=== PATIENT | female | born 1935 | race Two or more races ===

== ENCOUNTER → 2018-10-16 | Outpatient (CLI) | payer OTHER | END | disposition home or self-care (01) | LOC: NUCLEAR 10:45 | DX: M81.0 Age-related osteoporosis without current pathological fracture (principal) ==

== ENCOUNTER 2019-10-15 09:49 | Outpatient (CLI) | payer OTHER | END 2019-10-15 10:30 | disposition home or self-care (01) | LOC: NUCLEAR 09:49 | DX: I11.9 Hypertensive heart disease without heart failure (principal); I73.9 Peripheral vascular disease, unspecified; I87.2 Venous insufficiency (chronic) (peripheral) ==

== ENCOUNTER 2019-10-18 12:57 | Outpatient (CLI) | payer OTHER | END 2019-10-18 13:05 | disposition home or self-care (01) | LOC: NUCLEAR 12:57 | DX: I73.9 Peripheral vascular disease, unspecified (principal) ==

== ENCOUNTER 2020-07-02 09:17 | Outpatient (CLI) | payer OTHER | END 2020-07-02 09:19 | disposition home or self-care (01) | LOC: RAD 09:17 | PROVIDERS: ATTEND Internal Medicine Cardiovascular Disease | DX: R06.09 Other forms of dyspnea (principal) ==

== ENCOUNTER 2020-11-17 12:22 | Outpatient (CLI) | payer OTHER | END 2020-11-17 15:08 | disposition home or self-care (01) | LOC: LAB 12:22 | PROVIDERS: ATTEND Radiology Diagnostic Radiology | DX: N20.0 Calculus of kidney (principal) ==

== ENCOUNTER 2020-11-19 09:37 | Outpatient (CLI) | payer OTHER | END 2020-11-19 11:17 | disposition home or self-care (01) | LOC: TOM 09:37 | PROVIDERS: ATTEND Internal Medicine Gastroenterology | DX: K82.1 Hydrops of gallbladder (principal); Q00-Q99 Congenital malformations, deformations and chromosomal abnormalities; R10.31 Right lower quadrant pain; R10.32 Left lower quadrant pain; K57.90 Diverticulosis of intestine, part unspecified, without perforation or abscess without bleeding | CPT/HCPCS: 74177; Q9965 ==

== ENCOUNTER 2020-12-05 07:51 | Outpatient (CLI) | payer OTHER | END 2020-12-05 07:55 | disposition home or self-care (01) | LOC: SONOGRAMA 07:51 → MAMO-SONO 08:00 | PROVIDERS: ATTEND Internal Medicine Gastroenterology | DX: K80.80 Other cholelithiasis without obstruction (principal); R10.11 Right upper quadrant pain ==

== ENCOUNTER 2021-04-30 10:37 | Outpatient (CLI) | payer OTHER | END 2021-04-30 10:48 | disposition home or self-care (01) | LOC: RAD 10:37 | PROVIDERS: ATTEND Internal Medicine | DX: J01.90 Acute sinusitis, unspecified (principal); I87.2 Venous insufficiency (chronic) (peripheral); E03.9 Hypothyroidism, unspecified; M54.2 Cervicalgia; M89.9 Disorder of bone, unspecified; E55.9 Vitamin D deficiency, unspecified; E66.8 Other obesity; I49.9 Cardiac arrhythmia, unspecified ==

== ENCOUNTER 2024-12-24 11:27 | Inpatient (IN) | payer OTHER ==
[~2024-12-24] VITALS: Ht 152.4 cm; Wt 68.0 kg
[2024-12-24] MEDS ORDERED: DOCUSATE SODIU100 MG PO (11:51)
[2024-12-24] MEDS ORDERED: DONEPEZIL HCL5 MG PO (11:51)
[2024-12-24] MEDS ORDERED: BUSPIRONE HCL5 MG PO (11:51)
[2024-12-24] MEDS ORDERED: INDAPAMIDE1.25 MG PO (11:51)
[2024-12-24] MEDS ORDERED: PANTOPRAZOLE SO40 MG PO (11:52)
[2024-12-24] MEDS ORDERED: METFORMIN HCL500 M4 PO (11:52)
[2024-12-24] MEDS ORDERED: ST. JOSEPH ASPI81 M2 PO (11:52)
[2024-12-24] MEDS ORDERED: ROSUVASTATIN CAL5 MG PO (11:52)
[2024-12-24] MEDS ORDERED: SERTRALINE HCL25 MG PO (11:52)
[2024-12-24] MEDS ORDERED: 0.9 % SODIUM CHLORIDE 1,000 ML IV SCH (12:00)
[2024-12-24 12:40] LABS: HEMATOCRIT 27.1 % (36.0-45.00); MEAN CELL VOLUME 92.1 fL (80.00-100.00); MEAN CORPUSCULAR HGB CONC 34.2 g/dl (32.0-36.0); RED BLOOD COUNT 2.94 M/uL (4.00-6.00); RED CELL DISTRIBUTION WIDTH 14.3 % (11.5-14.5)
[2024-12-24 12:45] LABS: MEAN CORPUSCULAR HEMOGLOBIN 31.6 pg (27.00-32.0)
[2024-12-24 12:48] LABS: HEMOGLOBIN 9.3 g/dL (12.0-15.00); PLATELET COUNT 178 K/uL (150-450)
[2024-12-24 13:07] LABS: INR 1.05; PARTIAL THROMBOPLASTIN TIME 24.8 SECONDS (22.0-34.0); PROTHROMBIN TIME 11.4 SECONDS (9.0-11.5)
[2024-12-24 13:12] LABS: ALBUMIN 3.3 gm/dL (3.4-5.0); BILIRUBIN TOTAL 0.66 mg/dL (0.3-1.2); CALCIUM 9.2 mg/dL (8.5-10.1); CREATININE SERUM 0.99 mg/dL (0.55-1.02); GFR 53.06; GLOBULINA 3.9 G/DL (2.4-3.5); POTASSIUM 3.38 mEq/L (3.5-5.1); TOTAL PROTEIN 7.2 gm/dL (6.4-8.2)
[2024-12-24] MEDS ORDERED: DILTIAZEM HCL 25 MG/5 ML VIAL IV ONE ×2 (13:45→13:52)
[2024-12-24] MEDS ORDERED: DILTIAZEM HCL 125 MG in 0.9 % SODIUM CHLORIDE 125 ML IV SCH (14:15)
[2024-12-24] MEDS ORDERED: IPRATROPIUM BROMIDE 0.5 MG/2.5 ML AMPUL.NEB IH SCH (18:30)
[2024-12-24] MEDS ORDERED: ENOXAPARIN SODIUM 60 MG/0.6 ML SYRINGE SUBCUTANEO SCH (18:39)
[2024-12-24] MEDS ORDERED: DONEPEZIL HCL 5 MG TABLET PO SCH (18:41)
[2024-12-24] MEDS ORDERED: ACETAMINOPHEN 500 MG GEL..CAP PO PRN (18:45)
[2024-12-24] MEDS ORDERED: INSULIN LISPRO 1,000 UNIT/10 ML UNITS SUBCUTANEO PRN (18:45)
[2024-12-24] MEDS ORDERED: DEXTROSE 50 % IN WATER 0.5 G/ML DISP.SYRIN IV PRN (18:45)
[2024-12-24 19:37] LABS: INR 1.05; PROTHROMBIN TIME 11.4 SECONDS (9.0-11.5)
[2024-12-24 19:44] LABS: D DIMER 3.25 MG/L; PARTIAL THROMBOPLASTIN TIME 24.4 SECONDS (22.0-34.0)
[2024-12-24] MEDS ORDERED: POTASSIUM CHLORIDE 20MEQ/100ML H2O PB IV ONE (19:45)
[2024-12-24 19:51] LABS: URINE APPEARANCE Clear; URINE BILIRRUBIN Negative (NEGATIVE); URINE BLOOD Trace; URINE COLOR Yellow; URINE GLUCOSE Negative (NEGATIVE); URINE KETONE Negative (NEGATIVE); URINE LEUKOCYTE Small; URINE NITRATE Negative; URINE PROTEIN 30 (NEGATIVE); URINE UROBILINOGEN 0.2 E.U./dl
[2024-12-24 19:55] LABS: URINE BACTERIA 45.2 uL (0.0-1933); URINE CAST 3.38 uL (0.0-1.40); URINE EPITHELIAL CELLS 15.3 uL (0.0-38.8); URINE RBC 19.7 uL (0.0-20.8); URINE WBC 16.1 uL (0.0-23.2)
[2024-12-24] MEDS ORDERED: ENOXAPARIN SODIUM 60 MG/0.6 ML SYRINGE SUBCUTANEO ONE (19:58)
[2024-12-24] MEDS ORDERED: FUROsemide 20 MG/2 ML VIAL IV SCH (21:00)
[2024-12-24 22:07] VITALS: BP 144/73; O2SAT 100
[2024-12-24 23:34] VITALS: BP 147/69; O2SAT 100
[2024-12-25] VITALS (12 sets, daily range): BP systolic 116–154; BP diastolic 64–96; O2SAT 95–100
[2024-12-25] MEDS ORDERED: LEVOTHYROXINE SODIUM 50 MCG TABLET PO SCH (06:00)
[2024-12-25] MEDS ORDERED: HALOPERIDOL 0.5 MG TABLET PO STA (08:08)
[2024-12-25 08:22] LABS: CHOL HDL RATIO 4.5 (0-5.0); TSH 0.486 uIU/mL (0.358-3.74)
[2024-12-25] MEDS ORDERED: FAMOTIDINE/PF 20 MG in 0.9 % SODIUM CHLORIDE 8 ML IV PUSH SCH (09:00)
[2024-12-25] MEDS ORDERED: BUSPIRONE HCL 5 MG TABLET PO SCH (09:00)
[2024-12-25] MEDS ORDERED: SERTRALINE HCL 25 MG TABLET PO SCH (09:00)
[2024-12-25] MEDS ORDERED: IRON FUM,PS/FOLIC/BCOMP,C NO.9 1 CAP CAPSULE PO SCH (09:00)
[2024-12-25] MEDS ORDERED: DILTIAZEM HCL 30 MG TABLET PO NR (12:30)
[2024-12-25 13:48] LABS: HEMATOCRIT 26.1 % (36.0-45.00); HEMOGLOBIN 9.4 g/dL (12.0-15.00); MEAN CELL VOLUME 89.9 fL (80.00-100.00); MEAN CORPUSCULAR HEMOGLOBIN 32.3 pg (27.00-32.0); MEAN CORPUSCULAR HGB CONC 35.9 g/dl (32.0-36.0); PLATELET COUNT 196 K/uL (150-450); RED CELL DISTRIBUTION WIDTH 14.7 % (11.5-14.5)
[2024-12-25 14:48] LABS: CALCIUM 8.6 mg/dL (8.5-10.1); CREATININE SERUM 0.79 mg/dL (0.55-1.02); GFR 68.84; POTASSIUM 3.31 mEq/L (3.5-5.1)
[2024-12-25] MEDS ORDERED: DILTIAZEM HCL 30 MG TABLET PO SCH (17:00)
[2024-12-25] MEDS ORDERED: QUETIAPINE FUMARATE 25 MG TABLET PO STA (19:45)
[2024-12-25] MEDS ORDERED: DILTIAZEM HCL 125MG/25ML VIAL IV ONE (20:38)
[2024-12-26] VITALS (21 sets, daily range): BP systolic 95–148; BP diastolic 62–95; O2SAT 95–100
[2024-12-26] MEDS ORDERED: FUROsemide 20 MG/2 ML VIAL IV SCH (09:00)
[2024-12-26] MEDS ORDERED: QUETIAPINE FUMARATE 25 MG TABLET PO SCH (09:00)
[2024-12-26] MEDS ORDERED: POTASSIUM CHLORIDE 10 MEQ CAPSULE PO NR (11:00)
[2024-12-26] MEDS ORDERED: DILTIAZEM HCL 30 MG TABLET PO SCH (13:00)
[2024-12-26] MEDS ORDERED: DILTIAZEM HCL 125MG/25ML VIAL IV ONE (13:46)
[2024-12-26] MEDS ORDERED: AMIODARONE HCL 200 MG TABLET PO SCH (21:29)
[2024-12-27] VITALS (12 sets, daily range): BP systolic 110–158; BP diastolic 66–102; O2SAT 95–100
[2024-12-27 01:33] LABS: HEMATOCRIT 24.6 % (36.0-45.00); MEAN CELL VOLUME 88.6 fL (80.00-100.00); MEAN CORPUSCULAR HGB CONC 35.3 g/dl (32.0-36.0); PLATELET COUNT 208 K/uL (150-450); RED BLOOD COUNT 2.78 M/uL (4.00-6.00); RED CELL DISTRIBUTION WIDTH 15.2 % (11.5-14.5)
[2024-12-27 01:34] LABS: HEMOGLOBIN 8.7 g/dL (12.0-15.00); MEAN CORPUSCULAR HEMOGLOBIN 31.2 pg (27.00-32.0)
[2024-12-27 07:11] LABS: CREATININE SERUM 0.8 mg/dL (0.55-1.02); GFR 67.85; POTASSIUM 3.19 mEq/L (3.5-5.1)
[2024-12-27] MEDS ORDERED: CHLORHEXIDINE GLUCONATE 120 ML BOTTLE TOP ONE (09:32)
[2024-12-27] MEDS ORDERED: POTASSIUM CHLORIDE 10 MEQ CAPSULE PO NR (14:00)
[2024-12-27] MEDS ORDERED: MAGNESIUM SULFATE IN WATER 50 ML IV NR (14:00)
[2024-12-27] MEDS ORDERED: POTASSIUM CHLORIDE 20MEQ/100ML H2O PB IV NR (17:00)
[2024-12-27] MEDS ORDERED: HALOPERIDOL LACTATE 5 MG/ML AMPUL IV PRN (22:15)
[2024-12-27] MEDS ORDERED: HALOPERIDOL LACTATE 5 MG/ML AMPUL ONE (22:25)
[2024-12-28 04:00] VITALS: BP 127/94; O2SAT 99
[2024-12-28 07:24] VITALS: BP 134/98; O2SAT 95
[2024-12-28] MEDS ORDERED: CHLORHEXIDINE GLUCONATE 120 ML BOTTLE TOP ONE (10:23)
[2024-12-28 12:17] VITALS: BP 110/70; O2SAT 98
[2024-12-28 12:58] LABS: HEMATOCRIT 32.3 % (36.0-45.00); HEMOGLOBIN 10.7 g/dL (12.0-15.00); MEAN CELL VOLUME 90.3 fL (80.00-100.00); MEAN CORPUSCULAR HEMOGLOBIN 29.9 pg (27.00-32.0); MEAN CORPUSCULAR HGB CONC 33.1 g/dl (32.0-36.0); PLATELET COUNT 182 K/uL (150-450); RED BLOOD COUNT 3.58 M/uL (4.00-6.00); RED CELL DISTRIBUTION WIDTH 14.6 % (11.5-14.5)
[2024-12-28 13:54] LABS: CALCIUM 7.9 mg/dL (8.5-10.1); CREATININE SERUM 1.06 mg/dL (0.55-1.02); GFR 49.04; MAGNESIUM 2.4 mg/dL (1.8-2.4); POTASSIUM 3.82 mEq/L (3.5-5.1)
[2024-12-28 15:34] VITALS: BP 112/69; O2SAT 100
[2024-12-28 18:26] VITALS: BP 116/68; O2SAT 95
[2024-12-28 21:38] VITALS: O2SAT 99
[2024-12-29] VITALS (8 sets, daily range): BP systolic 93–137; BP diastolic 59–70; O2SAT 90–100
[2024-12-29] MEDS ORDERED: FAMOtidine 20 MG TABLET PO SCH (09:00)
[2024-12-30] VITALS: BP 104/66; O2SAT 94
[2024-12-30 00:39] VITALS: O2SAT 90
[2024-12-30] MEDS ORDERED: INSULIN NPH HUM/REG INSULIN HM 1,000 UNIT/10 ML UNITS SUBCUTANEO SCH (08:00)
[2024-12-30 08:51] VITALS: BP 104/68; O2SAT 98
== END 2024-12-30 14:04 | disposition expired | DRG 559 ==
LOC: ER 11:27 → ICU 19:37 → ICU-2 19:37 → ICU 21:43 → SURH 12-28 19:33
PROVIDERS: General Practice; Internal Medicine; ADMIT Internal Medicine; ATTEND Internal Medicine
PROC: BQ2SZZZ Computerized Tomography (CT Scan) of Left Lower Extremity (ICD-10-PCS; 2024-12-24)
PROC: B24BZZZ Ultrasonography of Heart with Aorta (ICD-10-PCS; 2024-12-25)
PROC: 02HV33Z Insertion of Infusion Device into Superior Vena Cava, Percutaneous Approach (ICD-10-PCS; principal; 2024-12-26)
PROC: 30233N1 Transfusion of Nonautologous Red Blood Cells into Peripheral Vein, Percutaneous Approach (ICD-10-PCS; 2024-12-26)
PROC: 4A12X4Z Monitoring of Cardiac Electrical Activity, External Approach (ICD-10-PCS; 2024-12-28)
DX: M97.12XA Periprosthetic fracture around internal prosthetic left knee joint, initial encounter (principal); I21.4 Non-ST elevation (NSTEMI) myocardial infarction; I48.20 Chronic atrial fibrillation, unspecified; W19.XXXA Unspecified fall, initial encounter; Y93.9 Activity, unspecified; Y92.129 Unspecified place in nursing home as the place of occurrence of the external cause; E78.5 Hyperlipidemia, unspecified; G30.9 Alzheimer's disease, unspecified; F02.80 Dementia in other diseases classified elsewhere, unspecified severity, without behavioral disturbance, psychotic disturbance, mood disturbance, and anxiety; D64.9 Anemia, unspecified; I34.0 Nonrheumatic mitral (valve) insufficiency; E87.6 Hypokalemia